=== PATIENT | male | born 1990 | race Caucasian/White ===

== ENCOUNTER 2018-11-29 19:32 | Emergency (ER) | payer OTHER ==
[~2018-11-29] VITALS: Ht 175.3 cm; Wt 60.8 kg
--- NOTE | 2018-11-29 20:12 | PHYS DOC ---
Past History Past Medical History: Anxiety Past Surgical History: No Surgical History Smoking: Non-smoker Alcohol Use: Occasionally Drug Use: None Adult General Chief Complaint Chief Complaint: BACK PAIN OR INJURY HPI HPI Patient is a 28 year old male who presents with diffuse muscle spasms following a chiropractic adjustment earlier this afternoon around 16:30. He says he had an adjustment done as follow up from last weeks manipulation, and when he was leaving the chiropractor he had to go back in because he felt very dizzy and light headed and was worried he was going to pass out. This has occurred an additional two times this evening but he denies syncope or LOC. Patient feels short of breath and anxious when muscle spasms occur. He took 800 mg ibuprofen with minimal relief. Patient was able to walk in here this evening. He denies headache, vision change, neurologic deficits, loss of bowel or bladder, and history of back trauma or fracture. Patient denies recent illness. Patient is up to date on immunizations. Of note he admits to a history of anxiety and has not been on medication for many years as they made him feel too "foggy." Review of Systems Review of Systems Constitutional: Denies fever or chills [] Eyes: Denies change in visual acuity, redness, or eye pain [] HENT: Denies nasal congestion or sore throat [] Respiratory: Denies cough or shortness of breath [] Cardiovascular: No chest pain, no palpitations GI: Denies abdominal pain, nausea, vomiting, or diarrhea [] : Denies dysuria or hematuria [] Musculoskeletal: Reports back pain and muscle spasms [] Integument: Denies rash or skin lesions [] Neurologic: Denies headache, focal weakness or sensory changes [] Psychiatric: reports anxiety Complete systems were reviewed and found to be within normal limits, except as documented in this note. Physical Exam Physical Exam Constitutional: Well developed, well nourished, no acute distress [] HENT: Normocephalic, atraumatic [] Eyes: PERRL, EOMI, conjunctiva normal, no discharge. [] Neck:decreased ROM with rotation, supple, bilateral paraspinal tenderness [] Cardiovascular: Heart rate regular rhythm, no murmur [] Lungs & Thorax: Bilateral breath sounds clear to auscultation [] Abdomen: soft, no guarding, no distention [] Skin: Warm, dry, no erythema, no rash. [] Back: diffuse bilateral paraspinal tenderness, decreased ROM with rotation, no ecchymosis, swelling, point tenderness, no midline tenderness [] Extremities: No tenderness, ROM intact, no edema, intermittent muscle spasms of all extremities. [] Neurologic: Alert and oriented X 3, normal motor function, normal sensory function, no focal deficits noted. [] Psychologic: Anxious, judgement normal EKG EKG [] Radiology/Procedures Radiology/Procedures [] Course & Med Decision Making Course & Med Decision Making Patient presented with diffuse muscle spasms following a chiropractic adjustment. Patient is neurologically intact with no deficits. He is not complaining of headaches or vision changes. He has diffuse tenderness of back musculature with limited ROM but no focal or midline tenderness. Offered patient fluids. electrolyte evaluation, and IV medication for symptomatic relief but he refused due to severe anxiety regarding needles. We discussed his uncontrolled anxiety likely contributing to presenting symptoms. The spasms decreased while talking to patient as he relaxed and resolved prior to discharged. Patient discharged with limited quantity of Valium and recommended to follow up with his PCP for further management. Patient stable for discharge home with outpatient follow-up with PCP. Discussed findings and plan with patient, who acknowledges understanding and agreement. Dragon Disclaimer Dragon Disclaimer This electronic medical record was generated, in whole or in part, using a voice recognition dictation system. Departure Departure: Impression: Primary Impression: Back pain Additional Impressions: Neck pain Anxiety Disposition: 01 HOME, SELF-CARE Condition: STABLE Referrals: PCP,NO (PCP) Patient Instructions: Anxiety and Panic Attacks, [id number], Back Pain, Adult , [id number], Cervical Sprain, [id number] Additional Instructions: Please call Dr. Alejandro Rodriguez (Pain management/physical med and rehab) at [facility] at [facility] Prednisone (PREDNISONE) 20 Mg Tablet 2 TAB PO DAILY for Inflammation, #8 TAB Start this prescription in the AM on 11/30/18 Prov: SHEEBA COMBS DO 11/29/18 Lidocaine (Lidocaine) 1 Each Adh..patch 1 EACH TP Q12HR PRN for PAIN, #6 PATCH Apply patch to affected area for 12 hours then remove and and keep off for next 12 hours Prov: SHEEBA COMBS DO 11/29/18 Diazepam (VALIUM) 2 Mg Tablet 2 MG PO TID PRN for MUSCLE PAIN, #10 TAB Prov: SHEEBA COMBS DO 11/29/18 Problem Qualifiers Primary Impression: Back pain Back pain location: back pain in unspecified location Chronicity: acute Back pain laterality: bilateral Qualified Codes: M54.9 - Dorsalgia, unspecified SHEEBA COMBS DO Nov 29, 2018 20:12
[2018-11-29] MEDS ORDERED: LIDO700A39 TP (20:58)
[2018-11-29] MEDS ORDERED: PRED20TA PO (20:58)
[2018-11-29] MEDS ORDERED: DIAZ2TAB PO (20:58)
[2018-11-29] MEDS ORDERED: diazePAM 5 MG TABLET PO ONE (21:00)
[2018-11-29] MEDS ORDERED: DEXAMETHASONE 4 MG TABLET PO ONE (21:00)
[2018-11-29] MEDS ORDERED: LIDOCAINE (700MG/PATCH) PATCH. TD ONE (21:15)
[2018-11-29 21:20] VITALS: BP 118/71
== END 2018-11-29 21:23 | disposition home or self-care (01) ==
LOC: ER 19:32
DX: M54.89 Other dorsalgia (principal); M54.2 Cervicalgia; R42 Dizziness and giddiness; F41.9 Anxiety disorder, unspecified
CPT/HCPCS: 99284; J8540

== ENCOUNTER 2019-09-01 04:21 | Inpatient (IN) | payer OTHER ==
[~2019-09-01] VITALS: Ht 180.3 cm; Wt 67.6 kg
[~2019-09-01 04:21] MED LIST: DIAZ2TAB PO; LIDO700A21 TP; PRED20TA PO
--- NOTE | 2019-09-01 04:25 | PHYS DOC ---
Past History Past Medical History: Anxiety, GERD (YAO OCONNELL MD) Past Surgical History: No Surgical History (YAO OCONNELL MD) Smoking: Non-smoker Alcohol Use: Occasionally Drug Use: None (YAO OCONNELL MD) Adult General Chief Complaint Chief Complaint: ".. I have really bad anxiety... and chronic abd. pain... and back pain... but the last two nights it has been really bad... and it wake me up;... nauseated.. I have been just going into shower.. 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 upper quadrant and epigastric pain. Pt. states that this episode of recurrent pain started after eating beans and rice 2 days ago. She denies any dark or tarry stools. Patient denies any history kidney stones with him or family members. No history of colitis with him or family members. Patient has history of chronic anxiety. Patient self medicates with marijuana 3-4 times a day. Patient has had chronic marijuana use since age 15 for his anxiety and gastric pain. Patient does not smoke tobacco. Patient denies any history immunosuppression or specific ill contacts. No recent travel. Possible recent intake of bad food 2 days ago. No history of trauma. No hx of EGD or colon exam. Pt. does not follow with a primary care. (YAO OCONNELL MD) Review of Systems Review of Systems Constitutional: Denies fever or chills [] Eyes: Denies change in visual acuity, redness, or eye pain [] HENT: Denies nasal congestion or sore throat [] Respiratory: Denies cough or shortness of breath [] Cardiovascular: No additional information not addressed in HPI [] GI: complaints of epigastric and Rt. upper quadrant abdominal pain, nausea, vomiting,. Denies bloody stools or diarrhea [] : Denies dysuria or hematuria [] Musculoskeletal: Complaints of chronic mid back pain . Integument: Denies rash or skin lesions [] Neurologic: Denies headache, focal weakness or sensory changes [] Endocrine: Denies polyuria or polydipsia [] All other systems were reviewed and found to be within normal limits, except as documented in this note. (YAO OCONNELL MD) Family History Family History Non-contributory (YAO OCONNELL MD) Current Medications Current Medications See Nursing for home meds. (YAO OCONNELL MD) Allergies Allergies Allergies Coded Allergies Type Severity Reaction Last Updated Verified Penicillins Allergy Unknown 11/29/18 Yes amoxicillin Allergy Unknown 11/29/18 Yes (YAO OCONNELL MD) Physical Exam Physical Exam Constitutional: moderated acute distress, non-toxic appearance. [] HENT: Normocephalic, atraumatic, bilateral external ears normal, oropharynx moist, no oral exudates, nose normal. Alvarez. Eyes: PERRLA, EOMI, conjunctiva normal, no discharge. [] Neck: Normal range of motion, no tenderness, supple, no stridor. [] Cardiovascular: Bradycardic Heart rate regular rhythm, no murmur [] Lungs & Thorax: Bilateral breath sounds equal at apex with scattered wheezes on auscultation [] Abdomen: Bowel sounds normal, soft, epigastric and Rt upper quadrant tenderness, no masses, no pulsatile masses. [] Rebound to Rt. upper quadrant. Pt. declines rectal at this time. Skin: Warm, dry, no erythema, no rash. [] Back: Mid Rt. back tenderness, Rt. CVA tenderness. [] Extremities: No tenderness, no cyanosis, no clubbing, ROM intact, no edema. [] Neurologic: Alert and oriented X 3, normal motor function, normal sensory f unction, no focal deficits noted. [] Psychologic: Affect anxious, judgement normal, mood normal. [] (YAO OCONNELL MD) EKG EKG Dilatation EKG shows a sinus bradycardia 54 bpm. No findings acute STEMI of contralateral changes.[] (YAO OCONNELL MD) Radiology/Procedures Radiology/Procedures I interpretation acute abdomen film shows no acute cardio pulmonary findings. There is no free air under the diaphragm. Nonspecific bowel gas pattern. CT of abdomen pending at time shift change.[] (YAO OCONNELL MD) Radiology/Procedures PROCEDURE: CT ABD PELV W/ORAL&IV CONTRAST PQRS Compliance statement: One or more of the following individualized dose reduction techniques were utilized for this examination: 1. Automated exposure control. 2. Adjustment of the mA and/or kV according to patient size. 3. Use of iterative reconstruction technique. Indication: Epigastric pain. TECHNIQUE: CT abdomen and pelvis with IV contrast with multiplanar reformats. COMPARISON: None FINDINGS: Heart is normal in size. No pericardial or pleural effusion. Clear lung bases. Liver, spleen, gallbladder, pancreas, adrenals and kidneys are within normal limits. No enlarged retroperitoneal or pelvic adenopathy. No free pelvic fluid or ascites. The prostate and seminal vesicles show no large mass. No bowel obstruction. Normal appendix. Urinary bladder demonstrates no radiopaque stone. No pneumoperitoneum. No suspicious bony lesion. IMPRESSION: No acute findings. (GUERITA ROMANO DO) Course & Med Decision Making Course & Med Decision Making Pertinent Labs and Imaging studies reviewed. (See chart for details) Patient endorsed to Dr. Romano at shift change. Labs and CT pending. Impression: 1. Abdomen Pain 2. Chronic Marijuana Use 3. Pancreatitis Amylase 135/Lipase 756 [] (YAO OCONNELL MD) Course & Med Decision Making Received patient at 6 AM. Agree with previous H&P. Patient was able to tolerate oral contrast and was transported to and from [place] with any complications. After return of laboratory and CT findings, these were discussed with the patient. Consultation was made with hospitalist service for admission. He was admitted in improved condition. (GUERITA ROMANO DO) Dragon Disclaimer Dragon Disclaimer This electronic medical record was generated, in whole or in part, using a voice recognition dictation system. (YAO OCONNELL MD) Departure Departure: Impression: Primary Impression: Pancreatitis Additional Impression: Cannabinoid hyperemesis syndrome Disposition: ADMITTED INPATIENT Admitting Physician: Kris Montes (GUERITA ROMANO DO) Condition: IMPROVED Referrals: PCP,NO (PCP) Dragon Disclaimer This chart was dictated in whole or in part using Voice Recognition software in a busy, high-work load, and often noisy Emergency Department environment. It may contain unintended and wholly unrecognized errors or omissions. (YAO OCONNELL MD) Problem Qualifiers Primary Impression: Pancreatitis Chronicity: acute Pancreatitis type: unspecified pancreatitis type Acute pancreatitis complication: no infection or necrosis Qualified Codes: K85.90 - Acute pancreatitis without necrosis or infection, unspecified YAO OCONNELL MD Sep 01, 2019 04:25 GUERITA ROMANO DO Sep 01, 2019 07:35
[2019-09-01] MEDS ORDERED: IV RINGERS SOLUTION,LACTATED 1,000 ML IV SCH (04:30)
[2019-09-01] MEDS ORDERED: MAGNESIUM HYDROXIDE 2,400 MG/30 ML ORAL.SUSP. PO ONE (04:45)
[2019-09-01] MEDS ORDERED: FAMOTIDINE 20 MG/2 ML VIAL IVP ONE (04:45)
[2019-09-01] MEDS ORDERED: ONDANSETRON PF 4 MG/2 ML VIAL. IVP ONE (04:45)
[2019-09-01] MEDS ORDERED: SUCRALFATE 1 GM TABLET. PO ONE (04:45)
[2019-09-01] MEDS ORDERED: KETOROLAC 30 MG/ML VIAL. IVP ONE (04:45)
[2019-09-01 05:03] LABS: BASO % 0 % (0-3); EOS # 0.1 x10^3/uL (0.0-0.7); EOS % 2 % (0-3); HEMATOCRIT 44.9 % (39.0-53.0); HEMOGLOBIN 14.8 g/dL (13.0-17.5); LYMPH # 2.6 x10^3/uL (1.0-4.8); LYMPH % 36 % (24-48); MEAN CORPUSCULAR HEMOGLOBIN 30 pg (25-35); MEAN CORPUSCULAR HGB CONC 33 g/dL (31-37); MEAN CORPUSCULAR VOLUME 91 fL (79-100); MONO # 0.6 x10^3/uL (0.0-1.1); MONO % 8 % (0-9); NEUT % 54 % (31-73); PLATELET COUNT 246 x10^3/uL (140-400); RED BLOOD COUNT 4.93 x10^6/uL (4.30-5.70); RED CELL DISTRIBUTION WIDTH 13.3 % (11.5-14.5); WHITE BLOOD COUNT 7.4 x10^3/uL (4.0-11.0)
[2019-09-01 05:08] LABS: BACTERIA,URINE 0 /HPF (0-FEW); BILIRUBIN,URINE NEG (NEG); CLARITY,URINE CLEAR; COLOR,URINE YELLOW; GLUCOSE,URINE NEG (NEG); NITRITE,URINE NEG (NEG); RBC,URINE 0 /HPF (0-2); UROBILINOGEN,URINE 0.2 mg/dL (0.2 mg/dL); WBC,URINE OCC /HPF (0-4)
[2019-09-01 05:11] LABS: BARBITURATES NEG (NEG); BENZODIAZEPINES NEG (NEG); CANNABINOIDS POS (NEG); COCAINE NEG (NEG); METHADONE NEG (NEG); OPIATES NEG (NEG); PHENCYCLIDINE NEG (NEG)
[2019-09-01 05:13] LABS: AMPHETAMINE/METHAMPHETAMINE NEG (NEG)
[2019-09-01 05:15] LABS: ALBUMIN 4.3 g/dL (3.4-5.0); CALCIUM 8.8 mg/dL (8.5-10.1); CREATININE 0.8 mg/dL (0.7-1.3); DIRECT BILIRUBIN 0.1 mg/dL (0.0-0.2); GFR 115.1; POTASSIUM 4.4 mmol/L (3.5-5.1); TOTAL BILIRUBIN 0.1 mg/dL (0.2-1.0); TOTAL PROTEIN 7.3 g/dL (6.4-8.2)
--- NOTE | 2019-09-01 05:25 | EKG ---
[address] [address] Test Date: 2019-09-01 Test Time: 05:24:14 Pat Name: ADINA WOLFE Department: Room: [facility]: : 1990 Requested By: YAO OCONNELL Order Number: [id number] Reading MD: Measurements Intervals [place] Rate: 54 P: 90 [place]: 204 QRS: 54 QRSD: 80 T: 53 QT: 380 QTc: 362 Interpretive Statements SINUS RHYTHM OTHERWISE NORMAL ECG RI6.01 No previous ECG available for comparison
[2019-09-01] MEDS ORDERED: IOHEXOL 240 MG/ML 50ML VIAL. PO ONE (06:15)
[2019-09-01] MEDS ORDERED: IOHEXOL 300 MG/ML 75 ML VIAL. IV ONE (06:15)
--- NOTE | 2019-09-01 06:28 | RAD ---
INDICATION: Epigastric pain COMPARISON: None. IMPRESSION: 3 views of the chest and abdomen obtained. No focal airspace consolidation to suggest pneumonia. Cardiac silhouette is unremarkable. No evidence of intraperitoneal free air. Air scattered throughout the large and small bowel in a nonspecific but not grossly obstructive pattern. Electronically signed by: Shoaib Deras MD (09/01/2019 6:25 AM) [facility]
--- NOTE | 2019-09-01 07:26 | RAD ---
PQRS Compliance statement: One or more of the following individualized dose reduction techniques were utilized for this examination: 1. Automated exposure control. 2. Adjustment of the mA and/or kV according to patient size. 3. Use of iterative reconstruction technique. Indication: Epigastric pain. TECHNIQUE: CT abdomen and pelvis with IV contrast with multiplanar reformats. COMPARISON: None FINDINGS: Heart is normal in size. No pericardial or pleural effusion. Clear lung bases. Liver, spleen, gallbladder, pancreas, adrenals and kidneys are within normal limits. No enlarged retroperitoneal or pelvic adenopathy. No free pelvic fluid or ascites. The prostate and seminal vesicles show no large mass. No bowel obstruction. Normal appendix. Urinary bladder demonstrates no radiopaque stone. No pneumoperitoneum. No suspicious bony lesion. IMPRESSION: No acute findings. Electronically signed by: Rakesh June DO (09/01/2019 7:23 AM) [facility]
[2019-09-01] MEDS: IV NORMAL SALINE 1,000ML 1,000 ML IV SCH ×2 (07:57→10:30)
[2019-09-01] MEDS ORDERED: ONDANSETRON PF 4 MG/2 ML VIAL. IV PRN (08:00)
[2019-09-01] MEDS ORDERED: MORPHINE SULFATE 2 MG/ML DISP.SYRIN. IV PRN (08:00)
[2019-09-01 10:22] VITALS: BP 120/79
--- NOTE | 2019-09-01 11:28 | NUR ---
NSG NOTE; PT LEFT AMA ADMITTED TO ROOM 117 AT 1005 FROM ED VIA CART ACCOMP BY EMS PERSONNEL PT WAS SLEEPING UNTIL 1045 WHEN I WOKE HIM FOR ADMISSION ASSESSMENT AND POC AFTER PT WAS INFORMED OF POC OF NPO, IVFs, PAIN AND NAUSEA MEDS UNTIL HE WAS FEELING BETTER THEN REINTRODUCING FLUIDS AND FOOD, HE STATED HE COULD DO THAT AT HOME AND REQUESTED TO LEAVE AMA. HE WAS ADVISED OF NEED TO STAY IN THE HOSPITAL BUT CHOSE TO GO HOME AND LEFT AMA AT 1055 VIA AMB ACCOMP BY SELF
== END 2019-09-01 10:55 | disposition left against medical advice (07) | DRG 440 ==
LOC: ER 04:21 → 1 SOUTH 10:14
PROVIDERS: ADMIT Family Medicine; ATTEND Family Medicine
DX: K85.90 Acute pancreatitis without necrosis or infection, unspecified (principal); G89.29 Other chronic pain; F41.9 Anxiety disorder, unspecified; F12.90 Cannabis use, unspecified, uncomplicated; K21.9 Gastro-esophageal reflux disease without esophagitis; Z88.0 Allergy status to penicillin; Z88.8 Allergy status to other drugs, medicaments and biological substances; Z79.899 Other long term (current) drug therapy; Z53.29 Procedure and treatment not carried out because of patient's decision for other reasons
CPT/HCPCS: 36415; 74022; 74177; 80048; 80076; 80307; 81001; 82150; 83690; 84484; 85025; 85610; 85730; 93005; 96361; 96374; 96375; J1885; J2060; J2405; J3490; J7120; Q9966; Q9967; 99285-25; J7030

== ENCOUNTER 2019-09-28 02:37 | Emergency (ER) | payer OTHER ==
[~2019-09-28] VITALS: Ht 180.3 cm; Wt 67.6 kg
[2019-09-28] MEDS ORDERED: LOPERAMIDE 2 MG CAPSULE PO ONE (03:00)
[2019-09-28] MEDS ORDERED: ONDANSETRON PF 4 MG/2 ML VIAL. IVP ONE ×2 (03:00→03:30)
[2019-09-28] MEDS ORDERED: IV NORMAL SALINE 1,000ML 1,000 ML IV ONE ×2 (03:00→04:15)
[2019-09-28] MEDS ORDERED: ONDA4TAB12 PO (03:12)
--- NOTE | 2019-09-28 03:12 | PHYS DOC ---
Past History Past Medical History: Anxiety, GERD Past Surgical History: No Surgical History Smoking: Non-smoker Alcohol Use: Occasionally Drug Use: None Adult General Chief Complaint Chief Complaint: ABDOMINAL PAIN HPI HPI 29-year-old male presents with nausea, vomiting, diarrhea, and generalized abdominal pain. The patient states that he has been vomiting and having diarrhea all day long. He is unable to keep down any liquids or solids. He does not have any antiemetics at home. He has anxiety for which she does not take medication and it is worse today because of being sick. His abdominal pain started after the vomiting and diarrhea. There is generalized all over. Patient denies fever or chills. He does feel tired and weak. Review of Systems Review of Systems Constitutional: Denies fever or chills [] Eyes: Denies change in visual acuity, redness, or eye pain [] HENT: Denies nasal congestion or sore throat [] Respiratory: Denies cough or shortness of breath [] Cardiovascular: No additional information not addressed in HPI [] GI: The last abdominal pain, nausea, vomiting, diarrhea [] : Denies dysuria or hematuria [] Musculoskeletal: Denies back pain or joint pain [] Integument: Denies rash or skin lesions [] Neurologic: Denies headache, focal weakness or sensory changes [] Endocrine: Denies polyuria or polydipsia [] All other systems were reviewed and found to be within normal limits, except as documented in this note. Current Medications Current Medications Current Medications Medications (Trade) Dose Ordered Sig/Yarely Start Time Stop Time Status Last Admin Dose Admin Loperamide HCl (Imodium) 4 mg 1X ONCE 09/28/19 03:00 09/28/19 03:01 DC Ondansetron HCl (Zofran) 4 mg 1X ONCE 09/28/19 03:00 09/28/19 03:01 DC Sodium Chloride 1,000 ml @ 1,000 mls/hr 1X ONCE 09/28/19 03:00 09/28/19 03:59 Allergies Allergies Allergies Coded Allergies Type Severity Reaction Last Updated Verified Penicillins Allergy Unknown 11/29/18 Yes amoxicillin Allergy Unknown 11/29/18 Yes Physical Exam Physical Exam Constitutional: Well developed, well nourished, mild acute distress, non-toxic appearance. [] HENT: Normocephalic, atraumatic, bilateral external ears normal, oropharynx moist, no oral exudates, nose normal. [] Eyes: PERRLA, EOMI, conjunctiva normal, no discharge. [] Neck: Normal range of motion, no tenderness, supple, no stridor. [] Cardiovascular:Heart rate regular rhythm, no murmur [] Lungs & Thorax: Bilateral breath sounds clear to auscultation [] Abdomen: Bowel sounds normal, soft, generalized tenderness, no masses, no pulsatile masses. [] Skin: Warm, dry, no erythema, no rash. [] Back: No tenderness, no CVA tenderness. [] Extremities: No tenderness, no cyanosis, no clubbing, ROM intact, no edema. [] Neurologic: Alert and oriented X 3, normal motor function, normal sensory function, no focal deficits noted. [] Psychologic: Affect normal, judgement normal, mood anxious. [] EKG EKG [] Radiology/Procedures Radiology/Procedures [] Course & Med Decision Making Course & Med Decision Making Pertinent Labs and Imaging studies reviewed. (See chart for details) We will give the patient liter normal saline, 4 mg of Zofran. The patient has had pancreatitis in the past. I have ordered basic labs as well as lipase. They're pending. The patient's labs are significant for an elevated white count with left shift. His lipase is normal. I do not have specific evidence of bacterial infection. The patient was given 2 L normal saline, Zofran, Compazine, and Benadryl for his anxiety. He was unable to rest and had no more vomiting. I will discharge the patient with Zofran 4 mg ODT tablets. He is stable for discharge at this time. [] Dragon Disclaimer Dragon Disclaimer This electronic medical record was generated, in whole or in part, using a voice recognition dictation system. Departure Departure: Impression: Primary Impression: Nausea vomiting and diarrhea Disposition: HOME, SELF-CARE Condition: IMPROVED Referrals: PCP,JAMAL (PCP) Patient Instructions: Diarrhea, [id number], Nausea and Vomiting, [id number]-[id number] Scripts Ondansetron (ONDANSETRON ODT) 4 Mg Tab.rapdis 1 TAB PO PRN Q6-8HRS PRN for VOMITING, #16 TAB Prov: SMITH ELENA DO 09/28/19 SMITH ELENA DO Sep 28, 2019 03:12
[2019-09-28 03:27] LABS: BASO % 0 % (0-3); EOS % 0 % (0-3); HEMATOCRIT 48.1 % (39.0-53.0); HEMOGLOBIN 15.8 g/dL (13.0-17.5); LYMPH # 0.9 x10^3/uL (1.0-4.8); LYMPH % 5 % (24-48); MEAN CORPUSCULAR HEMOGLOBIN 30 pg (25-35); MEAN CORPUSCULAR HGB CONC 33 g/dL (31-37); MEAN CORPUSCULAR VOLUME 91 fL (79-100); MONO % 5 % (0-9); NEUT # 16.7 x10^3uL (1.8-7.7); NEUT % 89 % (31-73); PLATELET COUNT 258 x10^3/uL (140-400); RED BLOOD COUNT 5.28 x10^6/uL (4.30-5.70); RED CELL DISTRIBUTION WIDTH 13.4 % (11.5-14.5); WHITE BLOOD COUNT 18.7 x10^3/uL (4.0-11.0)
[2019-09-28] MEDS ORDERED: diphenhydrAMINE 50 MG/ML VIAL IVP ONE (03:30)
[2019-09-28] MEDS ORDERED: PROCHLORPERAZINE 10 MG/2 ML VIAL. IV ONE (03:30)
[2019-09-28 03:33] LABS: CALCIUM 9.1 mg/dL (8.5-10.1); POTASSIUM 3.6 mmol/L (3.5-5.1)
[2019-09-28 03:40] LABS: ALBUMIN 4.6 g/dL (3.4-5.0); ALBUMIN/GLOBULIN RATIO 1.4 (1.0-1.7); TOTAL BILIRUBIN 0.6 mg/dL (0.2-1.0)
[2019-09-28 04:22] LABS: % BANDS 4 % (0-9); % LYMPHS 6 % (24-48); % MONOS 8 % (0-10); % SEGS 82 % (35-66)
[2019-09-28 04:23] LABS: PLT ESTIMATE ADEQUATE (ADEQUATE)
[2019-09-28 06:30] VITALS: BP 101/59
[2019-09-28 07:24] LABS: AMPHETAMINE/METHAMPHETAMINE NEG (NEG); BARBITURATES NEG (NEG); BENZODIAZEPINES NEG (NEG); CANNABINOIDS POS (NEG); COCAINE NEG (NEG); METHADONE NEG (NEG); OPIATES NEG (NEG); PHENCYCLIDINE NEG (NEG)
[2019-09-28 07:29] LABS: BACTERIA,URINE 0 /HPF (0-FEW); BILIRUBIN,URINE NEG (NEG); CLARITY,URINE CLEAR; COLOR,URINE YELLOW; GLUCOSE,URINE NEG (NEG); NITRITE,URINE NEG (NEG); RBC,URINE OCC /HPF (0-2); SQUAMOUS EPITHELIAL CELL,UR OCC /LPF; UROBILINOGEN,URINE 0.2 mg/dL (0.2 mg/dL); WBC,URINE OCC /HPF (0-4)
== END 2019-09-28 07:02 | disposition home or self-care (01) ==
LOC: ER 02:37
DX: R11.2 Nausea with vomiting, unspecified (principal); R19.7 Diarrhea, unspecified; R10.84 Generalized abdominal pain; K21.9 Gastro-esophageal reflux disease without esophagitis; F41.9 Anxiety disorder, unspecified; Z88.0 Allergy status to penicillin; Z88.1 Allergy status to other antibiotic agents
CPT/HCPCS: 36415; 80053; 80307; 81001; 83690; 85007; 85025; 96361; 96374; 96375; 99284; J0780; J1200; J2405; J7030